=== PATIENT | male | born 1955 | race Caucasian/White ===

== ENCOUNTER → 2020-07-28 | Outpatient (CLI) | payer BC ==
--- NOTE | 2020-08-04 09:22 | SLEEPHOME ---
DATE: 07/28/2020 ORDERED BY: Keron Diaz MD Diagnostic home sleep testing was performed due to concern for the obstructive sleep apnea syndrome. For testing, a nocturnal T3 respiratory monitoring device was used. Continuous record was made of pulse, oxygen saturation, air flow, chest and abdominal strain, and body position. Nine hours and 59 minutes of data were reviewed. There were 7 hours and 45 minutes marked as time in bed. During the interval marked time in bed, there were 317 respiratory events identified of 10 seconds in duration or greater for a respiratory disturbance index of 40.8. The events were obstructive. Baseline pulse rate was 63. Pulse rate ranged between 63 and 89. Baseline saturation was 90%. Saturations fell to 76%. The test was performed in both the supine and non-supine positions. IMPRESSION: Abnormal home sleep testing with repetitive respiratory events and oxygen desaturations to 76% with a respiratory disturbance index of 40.8 is consistent with the obstructive sleep apnea syndrome. RECOMMENDATION; The patient should be encouraged to undergo formal sleep evaluation. MTDD
== END ==
LOC: M SLEEP HO 07-14 09:38
PROVIDERS: ATTEND Internal Medicine Cardiovascular Disease
DX: R06.83 Snoring (principal)

== ENCOUNTER → 2024-03-05 | Outpatient (CLI) | payer MEDICARE, BC | LOC: M WUC 14:44 | PROVIDERS: ATTEND Internal Medicine | DX: Z77.29 Contact with and (suspected) exposure to other hazardous substances (principal) ==